=== PATIENT | female | born 1980 | race Caucasian/White ===

== ENCOUNTER 2024-12-28 14:38 | Emergency (ER) | payer BC ==
[~2024-12-28] VITALS: Ht 152.4 cm; Wt 61.2 kg
[2024-12-28 15:01] VITALS: BP 138/95; TEMP 98.2
[2024-12-28 16:39] VITALS: O2SAT 99
== END 2024-12-28 16:59 | disposition home or self-care (01) ==
LOC: ER 14:48
DX: S91.312A Laceration without foreign body, left foot, initial encounter (principal); W25.XXXA Contact with sharp glass, initial encounter; Y93.89 Activity, other specified; Y92.89 Other specified places as the place of occurrence of the external cause; Y99.8 Other external cause status